=== PATIENT | female | born 1935 | race Caucasian/White ===

== ENCOUNTER 2016-10-13 22:54 | Inpatient (IN) | payer OTHER ==
--- NOTE | ~2016-10-13 | CN ---
Consultation Report [facility] [address] [place]. [address] NAME: FERNANDA DAWN : 34 STATUS : ADM IN PAT#: [id number] AGE: 80 ADM/REG DATE : 10/14/16 MR#: [id number] REPORT SERV DATE: 10/14/16 DICTATED BY: JOHNATHAN SU DATE: 10/14/16 REPORT STATUS : Draft TRANSCRIBED BY: MODNahed DATE: 10/14/16 DATE OF CONSULTATION: 10/14/2016 CHIEF COMPLAINT: Lower extremity edema, acute kidney insufficiency, stage 4 CKD. HISTORY OF PRESENT ILLNESS: The patient is a morbidly obese white female with significant past medical history of stage 4 CKD (creatinine 1.8-1.9; Dr. Amaro), solitary kidney function, nephrolithiasis, hypertension, pacemaker present with increasing lower extremity edema under the direction of her primary care physician ([facility]). The patient's creatinine on presentation was 2.35. In June 2016 was 1.8-1.9. She has a history of solitary right kidney function due to a staghorn calculus in her left kidney. She does have a history in 2014 of acute kidney insufficiency on chronic kidney disease secondary to obstructive uropathy. She did have bilateral ureteral stents at that time in [address] Valerio. Renal ultrasound is currently pending. Urinalysis is currently pending. PAST MEDICAL/PAST SURGICAL HISTORY: 1. Stage 4 CKD with solitary kidney function (right creatinine 1.8-1.9). 2. 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 3. History of obstructive uropathy with acute kidney insufficiency in 2014. 4. Hyperlipidemia. 5. Hypertension. 6. Osteoarthritis. SOCIAL HISTORY: The patient lives with niece in [place]. No recreational drugs or alcohol. FAMILY MEDICAL HISTORY: No known kidney disease. ALLERGIES: NO KNOWN DRUG ALLERGIES. HOME MEDICATIONS: Currently pending. Current medications in the hospital are Protonix, Mevacor, Benadryl, vitamin D, Prozac, Aricept. REVIEW OF SYSTEMS: Complete review of systems done negative otherwise stated in HPI. PHYSICAL EXAMINATION: VITAL SIGNS: Temperature is 96.7, pulse is 72, blood pressure is 148/67. GENERAL: She is morbidly obese. No apparent distress. SKIN: No petechiae, purpura, dry intact. PSYCH: Appropriate mood and affect. NEURO: Alert and oriented x3. Moves all four extremities. HEENT: Normocephalic. No scleral icterus. Moist mucous membranes. NECK: No JVD. No lymphadenopathy. Trachea midline. CARDIOVASCULAR: Regular rate and rhythm. No gallops, rubs, or murmurs. Consultation Report [place] [address] [place]. [address] NAME: FERNANDA DAWN : 34 STATUS : ADM IN [facility]#: [id number] AGE: 80 ADM/REG DATE : 10/14/16 MR#: [id number] REPORT SERV DATE: 10/14/16 DICTATED BY: JOHNATHAN SU DATE: 10/14/16 REPORT STATUS : Draft TRANSCRIBED BY: ANDRE DATE: 10/14/16 RESPIRATORY: Clear to auscultation bilaterally without increased respiratory rate. ABDOMEN: Soft, nontender, nondistended. Positive bowel sounds. EXTREMITIES: +1 peripheral edema. LABORATORY DATA: 1. Creatinine is 2.35, BUN is 27. CO2 is 30, sodium is 141, potassium 5.0, chloride is 108, glucose is 92, calcium is 8.8, magnesium is 2.1, phosphorus is 3.2. White blood cell count 7.6, hemoglobin is 11. Platelets are 200. 2. Chest x-ray, no infiltrates or effusions. 3. Renal ultrasound is currently pending. 4. Lower extremity ultrasound, no DVT. ASSESSMENT: 1. Lower extremity edema in the setting of volume overload. There is no evidence of lower extremity DVT by ultrasound. Echocardiogram is currently pending and urinalysis is currently pending. 2. Acute kidney injury and stage 4 chronic kidney disease with baseline creatinine 1.8-1.9 with past medical history of solitary right kidney function. The patient is noted to have a left kidney staghorn with no function in this kidney. 3. Pacemaker with secondary to complete heart block. 4. Hypertension. PLAN: 1. Diuretics. 2. Urinalysis, protein and creatinine ratio. 3. Renal ultrasound. 4. Discussed and updated daughter. MITRA/ANDRE Johnathan Su M.D. / [id number] CC: Yair Lo M.D.
--- NOTE | ~2016-10-13 | HP ---
History And Physical [place] [id number] [facility] [place]. [address] NAME: FERNANDA DAWN : 34 STATUS : ADM IN [facility]#: [id number] AGE: 80 ADM/REG DATE : 10/14/16 MR#: [id number] REPORT SERV DATE: 10/14/16 DICTATED BY: MALA WISE DATE: 10/14/16 REPORT STATUS : Draft TRANSCRIBED BY: MODNahed DATE: 10/14/16 DATE OF ADMISSION: 10/14/2016 CHIEF COMPLAINT: Increased edema per daughter. HISTORY OF PRESENT ILLNESS: The patient is an 80-year-old elderly female, who is a patient of In [facility], brought to [facility] Emergency Room for worsening bilateral lower extremity edema and shortness of breath. The patient is hard of hearing. Most information obtained from reviewing her medical records in chart as well as records obtained from [facility] and the patient's daughter, who is present during examination and interview. The patient's daughter reports the patient was referred by [facility] nurse practitioner due to the patient's complaint of increased worsening edema, sleeping more, and increased weakness since the last few days. Daughter reports that last Wednesday, she had noted swelling of her bilateral lower leg, but when checked yesterday by her cousin, the swelling has worsened despite the patient receiving two dosages of half a tablet of a 20 mg Lasix. ALLERGIES: ADHESIVE TAPE. CODE STATUS: Full. MEDICATION: See chart re-conciliated today. PAST MEDICAL HISTORY: To include: 1. History of third-degree heart block status post pacemaker implantation, chronic kidney disease, stage 3. Was seen by Dr. Kwan Amaro three years ago when hospitalized in [facility] but has only been following Dr. Salvatore Valerio. 2. Morbid obesity. 3. 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 4. Hyperlipidemia. 5. Osteoarthritis. 6. Anemia of chronic disease. 7. Hypertension. 8. History of urosepsis. 9. History of kidney stones followed by Dr. Valerio with status post ureteroscopy with basket stone extraction and renal calculus and placement of right ureteral stent and removal of left ureteral stent on 03/19/2015. 10.History of anxiety and depression. 11.History of mild dementia. 12.History of bleeding ulcer. 13.History of peripheral edema. 14.Recent upper respiratory infection with wheezing and hypoxia requiring O2 at home for approximately two months and breathing treatment as needed. History And Physical [address] [place]. [address] NAME: FERNANDA DAWN : 34 STATUS : ADM IN PAT#: [id number] AGE: 80 ADM/REG DATE : 10/14/16 MR#: [id number] REPORT SERV DATE: 10/14/16 DICTATED BY: MALA WISE DATE: 10/14/16 REPORT STATUS : Draft TRANSCRIBED BY: ANDRE DATE: 10/14/16 PAST SURGICAL HISTORY: 1. Status post permanent pacemaker implantation in 06/2009, followed by Dr. Mazariegos at [facility] with last pacemaker home check last Wednesday. 2. History of total abdominal hysterectomy with bilateral salpingo oophorectomy approximately 37 years ago. 3. Left cochlear implant approximately five years ago. 4. Right eye cataract surgery in 2013. 5. Cystourethroscopy with left ureteral stent removal and right basket stone extraction due to renal calculus and placement of right urethral stent by Dr. Salvatore Valerio on 03/19/2015. SOCIAL HISTORY: The patient lives with her niece but with good family support. The patient is retired. She denies any history of smoking, alcohol, or illicit drug use. The patient has three children but only one living, who is her daughter, Mika Morataya. FAMILY HISTORY: 1. The patient's son and daughter with diabetes, both . Son with renal failure, requiring dialysis. 2. Father and brother with diabetes. Father from a stroke. Mother when the patient was age 4 due to head trauma. REVIEW OF SYSTEMS: 1. The patient denies any complaint of swallowing problems. She is hard of hearing bilaterally. She denies any complaint of shortness of breath at this time. The patient daughter reports the patient had some wheezing last night and continues to use nasal cannula O2. The patient denies any nausea, vomiting, or abdominal pain. The patient reports last bowel movement was yesterday. The patient reports she has incontinence, had felt at times a burning with urination. The daughter reports that patient with history of urosepsis was placed by Dr. Valerio on preventive Septra maintenance for history of UTI, and daughter reports the patient only with one functional kidney, which is the right. 2. The patient with history of anxiety and depression. The patient's daughter reports the patient scratches and picks on her arm, more from anxiety. The patient's daughter reports the patient would scratch her arms with anything she can get a hold of including scratching on the handle of the chair. Therefore, she has multiple bilateral arm scratch abrasion. 3. The patient walks with a walker, only gets around the house. Daughter reports the patient health situation is accessible to everything she needs. Her meals are precooked for her and now she has to do is microwave. She has multiple family members surrounding her that checks up on her daily. Niece lives with her but works in the daytime but is present at night. 4. The patient with history of ulcer, therefore is not on aspirin. PHYSICAL EXAMINATION: GENERAL: The patient is a pleasant, elderly female, alert and oriented to self, day, time, and place. HEENT: Oral mucosa has bilateral upper and lower dentures present. Eyes, PERRLA, History And Physical [address] [address] NAME: FERNANDA DAWN : 33 STATUS : ADM IN [facility]#: [id number] AGE: 80 ADM/REG DATE : 10/14/16 MR#: [id number] REPORT SERV DATE: 10/14/16 DICTATED BY: MALA WISE DATE: 10/14/16 REPORT STATUS : Draft TRANSCRIBED BY: ANDRE DATE: 10/14/16 nonicteric bilaterally. NECK: No JVD. No pain on palpation and no pain on range of motion. CHEST: No deformity noted. LUNGS: Clear to auscultation bilaterally. No wheezing except diminished bilateral breath sounds over the base. CV: Regular rate and rhythm. Normal S1, S2. No murmurs noted. ABDOMEN: Obese. Bowel sounds x4 quadrants. Nontender and no guarding. : The patient with adult diaper. EXTREMITIES: Bilateral upper extremity with generalized arthritic changes noted. No edema but multiple scratch abrasion, especially on the lateral lower arm. The patient's nails are trimmed short. Bilateral lower extremity with 3+ pitting edema with some erythema, but no significant increase in temperature when palpated and no pain with palpation. The patient with no pain on range of motion but limited secondary to weakness and edema. Gait not assessed. The patient is sitting in a chair without any difficulty. IMAGING: Chest x-ray on 10/13/2016 negative for acute changes. LABORATORY STUDY: Sodium 141, potassium 5.0, chloride 108, CO2 30, BUN 27, creatinine 2.35, GFR of 19, glucose of 92, magnesium of 2.1. WBC 7.6, hemoglobin 11.3, hematocrit 37.9, INR 1.0, PT 13.2, PTT of 27.6, and platelet of 200. BNP of 151.3. Troponin of less than 0.02. IMPRESSION: 1. Acute kidney injury on chronic kidney disease, stage 3 with history of one functional right kidney. 2. Bilateral lower extremity edema. 3. Dyspnea, O2 dependent. 4. Anemia secondary to chronic disease. 5. Gait impairment secondary to edema and weakness. 6. Hypertension, primary controlled. 7. History of third-degree heart block status post pacemaker implantation. 8. Bilaterally hard of hearing, status post left cochlear implant and right hearing aid use. 9. Pruritus, question uremia pruritus. 10.Bilateral upper extremity multiple skin breakdown secondary to scratch abrasion. 11.History of osteoarthritis. 12.History of depression and anxiety. PLAN: 1. Refer the patient to Nephrology for systemic management of acute kidney injury on chronic kidney disease with history of one functional kidney. The patient did receive Lasix. We will defer further diuresis to Nephrology. Continue to monitor sat O2 and respiratory failure. We will ensure the patient elevate lower extremity while in bed. We will check a renal ultrasound and bilateral lower extremity to rule out DVT and initiate DVT prophylaxis with heparin subcutaneous renally dose. Also, obtain urinalysis, culture and sensitivity to rule out UTI for source of DESTINI. We will hold maintenance Septra at this time secondary to could be renal toxic. Currently, the patient is afebrile with WBC on admission to be within normal limits. We will hold off History And Physical [address] [address] NAME: FERNANDA DAWN : 33 STATUS : ADM IN [facility]#: [id number] AGE: 80 ADM/REG DATE : 10/14/16 MR#: [id number] REPORT SERV DATE: 10/14/16 DICTATED BY: MALA WISE DATE: 10/14/16 REPORT STATUS : Draft TRANSCRIBED BY: ANDRE DATE: 10/14/16 antibiotic at this time. We will closely monitor renal function. I will continue p.o. renal diet at this time. Discussed with the patient and daughter regarding renal diet. Questions answered to her satisfaction. The patient is at risk for worsening DESTINI/hemodialysis. 2. We will continue current nasal cannula O2 for dyspnea. Continue home breathing treatment regimen p.r.n., question dyspnea could be multifactorial. Chest x-ray on 10/13/2016, was negative for acute changes and admission BNP is 151.3. The patient did have what looked like an echocardiogram on 07/17/2016 but unable to obtain results via EMR. We will request for results to see if the patient with any form of congestive heart failure. 3. We will refer the patient to PT for evaluation and treatment. Place the patient on fall precaution. The patient is able to transfer with some assistance to the bedside chair. The patient is at risk for fall. 4. The patient with a history of anemia, but H and H on admission stable. Continue home regimen. The patient is at risk for worsening anemia. 5. The patient with history of hypertension, appears BP is stable. Continue home med regimen. The patient is at risk for CVA. 6. We will have Benadryl p.r.n. for the patient complaint of pruritus. We will apply a triple antibiotic to bilateral upper skin breakdown and monitor for further skin breakdown and instruct the patient to avoid further scratching and to use Benadryl if needed. The patient is at risk for cellulitis. 7. Address code status with the patient's daughter, and she desires a full code. The patient's daughter is POA, completed inpatient post form. 8. Discuss plan of care with daughter and agreed with the Nephrology consult. If needed, we will consult the patient's urology doctor, Dr. Valerio, if there is issue with renal calculi. DICTATED BY: ANTONIO Nix/MODL Mala Wise M.D. / [id number] CC: Yair Lo M.D.
[2016-10-13 22:16] LABS: BASOPHILS 0.4 %; BASOPHILS ABSOLUTE 0.03 10/3/uL (0.0-0.16); EOSINOPHILS 0.8 %; EOSINOPHILS ABSOLUTE 0.06 10/3/uL (0.0-0.53); ER CBC TAT 0 Hrs 07 Mins; HEMATOCRIT 37.9 % (36.0-48.0); IMMATURE GRANULOCYTES 0.4 %; IMMATURE GRANULOCYTES ABSOLUTE 0.03 10/3/uL (0.0-0.11); LYMPHOCYTES 21.7 %; LYMPHOCYTES ABSOLUTE 1.66 10/3/uL (0.67-4.30); MEAN PLATELET VOLUME 9.8 fL (9.2-13.0); MONOCYTES 9.7 %; MONOCYTES ABSOLUTE 0.74 10/3/uL (0.21-1.20); NEUTROPHILS ABSOLUTE 5.12 10/3/uL (2.02-8.40); PLATELET COUNT 200 10/3/uL (150-400); RBC DISTRIBUTION WIDTH 17.1 % (12.0-16.0); RED CELL COUNT 4.08 10/6/uL (4.0-5.6); WHITE BLOOD CELLS 7.6 10/3/uL (4.5-10.5)
[2016-10-13 22:17] LABS: MANUAL DIFF NO %; MEAN CORPUSCULAR VOLUME 92.9 fL (80-100)
[2016-10-13 22:22] LABS: PARTIAL THROMBO TIME 27.6 SEC (22.5-37.2); PROTIME (NOT ORD) 13.2 SEC (12.0-14.5)
[2016-10-13 22:31] LABS: CALCIUM, SERUM 8.8 MG/DL (8.5-10.4); CHEST PAIN PROFILE TAT 0 Hrs 22 Mins; CHLORIDE, SERUM 108 MMOL/L (96-112); CO2 (CARBON DIOXIDE) 30 MMOL/L (24-34); SODIUM, SERUM 141 MMOL/L (135-148); TROPONIN I <0.02 NG/ML (<0.05)
[2016-10-13 22:33] LABS: BUN (BLOOD UREA NITROGEN) 27 MG/DL (6-23); CREATININE 2.35 MG/DL (0.55-1.02); GFR AFRICAN AMERICAN 22 ML/MIN (>=60); GFR NON AFRICAN AMERICAN 19 ML/MIN (>=60); GLUCOSE, SERUM 92 MG/DL (60-99)
[~2016-10-13 22:54] MED LIST: ANTIBIOTIC PO; ARICEPT5 PO; CYANO1000T PO; FISH-EPA1000 MG PO; FOSAMAX35 MG PO; LEVAQUIN750 MG PO; LOFIBRA134 MG PO; MEVACOR PO; MEVACOR40 MG PO; NORV5 PO; PRENAVITE PO; PRILO PO; PROZ10 PO; VOLT75 PO; ZESTORETIC1 TA1 PO
[2016-10-14] MEDS ORDERED: BACTRIM DS1 TAB PO (00:37)
[2016-10-14] MEDS ORDERED: MEVACOR40 MG PO (00:38)
[2016-10-14] MEDS ORDERED: PROZ10 PO (00:38)
[2016-10-14] MEDS ORDERED: NEUR100 PO (00:39)
[2016-10-14] MEDS ORDERED: ARICEPT5 PO (00:39)
[2016-10-14] MEDS ORDERED: FOSAMAX35 MG PO (00:39)
[2016-10-14] MEDS ORDERED: VITAMIN B-12 OTC PO (00:40)
[2016-10-14] MEDS ORDERED: PRENATABS RX PO (00:40)
[2016-10-14] MEDS ORDERED: ALBUTEROL0.083 % INH (00:41)
[2016-10-14] MEDS ORDERED: PRILOSEC40 MG PO (00:41)
[2016-10-14] MEDS ORDERED: CLARIT10 PO (00:42)
[2016-10-14] MEDS ORDERED: L20 PO (00:42)
[2016-10-14] MEDS ORDERED: 15KENA.025 TOP (00:43)
[2016-10-14 19:13] LABS: ASCORBIC ACID (UR NOT ORDER) NEG (NEG); BILIRUBIN, URINE NEGATIVE (NEG); KETONE, URINE NEGATIVE (NEG); LEUKOCYTE ESTERASE(NOT OR LARGE (NEG); WBC (NOT ORDERED) (RFLEX) 137 (0-5)
[2016-10-15 05:49] LABS: BASOPHILS 0.5 %; BASOPHILS ABSOLUTE 0.03 10/3/uL (0.0-0.16); EOSINOPHILS 2.4 %; EOSINOPHILS ABSOLUTE 0.16 10/3/uL (0.0-0.53); HEMATOCRIT 35.8 % (36.0-48.0); HEMOGLOBIN 10.4 g/dL (12.0-16.0); IMMATURE GRANULOCYTES 0.2 %; IMMATURE GRANULOCYTES ABSOLUTE 0.01 10/3/uL (0.0-0.11); LYMPHOCYTES ABSOLUTE 1.65 10/3/uL (0.67-4.30); MEAN CORPUS HGB CONC 29.1 g/dL (32.0-36.0); MEAN CORPUSCULAR HEMOGLOB 27.3 pg (26.0-34.0); MEAN PLATELET VOLUME 9.8 fL (9.2-13.0); MONOCYTES 11.1 %; MONOCYTES ABSOLUTE 0.73 10/3/uL (0.21-1.20); NEUTROPHILS 60.8 %; NEUTROPHILS ABSOLUTE 4.01 10/3/uL (2.02-8.40); PLATELET COUNT 183 10/3/uL (150-400); RBC DISTRIBUTION WIDTH 16.9 % (12.0-16.0); RED CELL COUNT 3.81 10/6/uL (4.0-5.6); WHITE BLOOD CELLS 6.6 10/3/uL (4.5-10.5)
[2016-10-15 05:53] LABS: MANUAL DIFF NO %
[2016-10-15 06:09] LABS: ALBUMIN 2.6 G/DL (3.5-5.0); BUN (BLOOD UREA NITROGEN) 27 MG/DL (6-23); CHLORIDE, SERUM 103 MMOL/L (96-112); CO2 (CARBON DIOXIDE) 32 MMOL/L (24-34); CREATININE 2.28 MG/DL (0.55-1.02); GFR AFRICAN AMERICAN 23 ML/MIN (>=60); GFR NON AFRICAN AMERICAN 19 ML/MIN (>=60); GLUCOSE, SERUM 73 MG/DL (60-99); POTASSIUM, SERUM 4.6 MMOL/L (3.5-5.3); SODIUM, SERUM 140 MMOL/L (135-148)
[2016-10-15 11:20] LABS: LYMPHOCYTES 26 %; LYMPHOCYTES ABSOLUTE (CALC) 1.72 10/3/uL (0.67-4.30); MONOCYTES 2 %; MONOCYTES ABSOLUTE (CALC) 0.13 10/3/uL (0.21-1.20); NEUTROPHILS ABSOLUTE (CALC) 4.75 10/3/uL (2.02-8.40); PLATELET ESTIMATE ADQ (ADEQUATE); RBC MORPHOLOGY NORM (NORMAL); SEGMENTED NEUTROPHIL (0) 72 %; TOTAL NUCLEATED CELLS 100
[2016-10-16 05:37] LABS: BASOPHILS 0.5 %; BASOPHILS ABSOLUTE 0.03 10/3/uL (0.0-0.16); EOSINOPHILS 3.3 %; HEMATOCRIT 38.9 % (36.0-48.0); HEMOGLOBIN 11.4 g/dL (12.0-16.0); IMMATURE GRANULOCYTES 0.2 %; IMMATURE GRANULOCYTES ABSOLUTE 0.01 10/3/uL (0.0-0.11); LYMPHOCYTES 23.6 %; LYMPHOCYTES ABSOLUTE 1.41 10/3/uL (0.67-4.30); MEAN CORPUS HGB CONC 29.3 g/dL (32.0-36.0); MEAN CORPUSCULAR HEMOGLOB 27.3 pg (26.0-34.0); MEAN CORPUSCULAR VOLUME 93.3 fL (80-100); MEAN PLATELET VOLUME 9.5 fL (9.2-13.0); MONOCYTES 14.2 %; MONOCYTES ABSOLUTE 0.85 10/3/uL (0.21-1.20); NEUTROPHILS 58.2 %; NEUTROPHILS ABSOLUTE 3.48 10/3/uL (2.02-8.40); PLATELET COUNT 172 10/3/uL (150-400); RBC DISTRIBUTION WIDTH 16.7 % (12.0-16.0); RED CELL COUNT 4.17 10/6/uL (4.0-5.6)
[2016-10-16 05:42] LABS: MANUAL DIFF NO %
[2016-10-16 05:53] LABS: ALBUMIN 2.7 G/DL (3.5-5.0); BUN (BLOOD UREA NITROGEN) 26 MG/DL (6-23); CALCIUM, SERUM 9.1 MG/DL (8.5-10.4); CHLORIDE, SERUM 101 MMOL/L (96-112); CO2 (CARBON DIOXIDE) 35 MMOL/L (24-34); CREATININE 2.28 MG/DL (0.55-1.02); GFR AFRICAN AMERICAN 23 ML/MIN (>=60); GFR NON AFRICAN AMERICAN 19 ML/MIN (>=60); GLUCOSE, SERUM 80 MG/DL (60-99); POTASSIUM, SERUM 4.1 MMOL/L (3.5-5.3); SODIUM, SERUM 141 MMOL/L (135-148)
[2016-10-16] MEDS ORDERED: DURICEF PO (17:23)
== END 2016-10-16 18:40 | disposition home health service (06) | DRG 683 ==
LOC: ER 22:54 → 6NO 10-14 00:01
PROVIDERS: Emergency Medicine; Family Medicine; Internal Medicine Nephrology
DX: N17.9 Acute kidney failure, unspecified (principal); Z68.41 Body mass index [BMI] 40.0-44.9, adult; Z99.81 Dependence on supplemental oxygen; N39.0 Urinary tract infection, site not specified; D63.8 Anemia in other chronic diseases classified elsewhere; M19.90 Unspecified osteoarthritis, unspecified site; B96.20 Unspecified Escherichia coli [E. coli] as the cause of diseases classified elsewhere; I12.9 Hypertensive chronic kidney disease with stage 1 through stage 4 chronic kidney disease, or unspecified chronic kidney disease; N18.4 Chronic kidney disease, stage 4 (severe); E66.9 Obesity, unspecified; H91.90 Unspecified hearing loss, unspecified ear; F32.9 Major depressive disorder, single episode, unspecified; F41.9 Anxiety disorder, unspecified; R26.9 Unspecified abnormalities of gait and mobility; Z96.21 Cochlear implant status; Z95.0 Presence of cardiac pacemaker; Z87.442 Personal history of urinary calculi; Z90.710 Acquired absence of both cervix and uterus
CPT/HCPCS: 71010; 76775; 80048; 80069; 81001; 83735; 83880; 84484; 85025; 85610; 85730; 87077; 87086; 87186; 93005; 93970; 96374; 97110-GP; 97116-GP; 97162-GP; 99285; A9270-GY; G8978-CL-GP; G8979-CJ-GP; J1940